=== PATIENT | male | born 1935 | race Caucasian/White ===

== ENCOUNTER 2016-10-14 13:04 | Emergency (ER) | payer MEDICARE, OTHER ==
[~2016-10-14] VITALS: Ht 180.3 cm; Wt 83.0 kg
[~2016-10-14 13:04] MED LIST: FOSI20TA PO; OMEP20CA9 PO; SIMV40TA3 PO
[2016-10-14 13:22] VITALS: BP 113/73
[2016-10-14] MEDS ORDERED: FENTANYL PF 100 MCG/2 ML VIAL. IV ONE (14:00)
[2016-10-14 14:30] LABS: BASO # 0.1 x10^3/uL (0.0-0.2); BASO % 1 % (0-3); EOS % 5 % (0-3); HEMATOCRIT 47.2 % (39.0-53.0); HEMOGLOBIN 16.2 g/dL (13.0-17.5); LYMPH # 1.5 x10^3/uL (1.0-4.8); LYMPH % 20 % (24-48); MEAN CORPUSCULAR HEMOGLOBIN 32 pg (25-35); MEAN CORPUSCULAR HGB CONC 34 g/dL (31-37); MEAN CORPUSCULAR VOLUME 95 fL (79-100); MONO % 6 % (0-9); NEUT % 67 % (31-73); PLATELET COUNT 139 x10^3/uL (140-400); RED BLOOD COUNT 4.99 x10^6/uL (4.30-5.70); RED CELL DISTRIBUTION WIDTH 13.6 % (11.5-14.5); WHITE BLOOD COUNT 7.6 x10^3/uL (4.0-11.0)
[2016-10-14 14:38] LABS: CALCIUM 8.9 mg/dL (8.5-10.1); GFR 72.1; POTASSIUM 3.7 mmol/L (3.5-5.1)
[2016-10-14 15:04] LABS: BILIRUBIN,URINE NEGATIVE (NEG); GLUCOSE,URINE NEGATIVE (NEG); NITRITE,URINE NEGATIVE (NEG); PH,URINE 5.5; PROTEIN,URINE NEGATIVE (NEG-TRACE); UROBILINOGEN,URINE 0.2 mg/dL (0.2 mg/dL)
[2016-10-14 15:09] LABS: BACTERIA,URINE 0 /HPF (0-FEW); RBC,URINE 0 /HPF (0-2); SQUAMOUS EPITHELIAL CELL,UR OCC /LPF; WBC,URINE 0 /HPF (0-4)
--- NOTE | 2016-10-14 15:15 | PHYS DOC ---
Past Medical History Past Medical History: Diverticulitis, GERD, High Cholesterol, Hypertension, Other Additional Past Medical Histor: colitis Past Surgical History: Cholecystectomy Alcohol Use: Occasionally Drug Use: None Adult General Chief Complaint Chief Complaint: FLANK PAIN HPI HPI 81-year-old male presenting with left-sided flank pain that does radiate somewhat into his abdomen for the last 5 days. He denies any dysuria or hematuria. He does state he has recent history of diverticulitis although he states it felt somewhat different than his current symptoms. He denies any nausea or vomiting. He states he's had loose stools but denies any blood. He denies any fever or chills. Pt is fully alert and oriented at this time and is speaking in complete sentences and does not appear to be in any acute distress. He rates his pain a 6 out of 10 on the pain scale. He does state that movement makes his pain worse Review of Systems Review of Systems Constitutional: Denies fever or chills [] Eyes: Denies change in visual acuity, redness, or eye pain [] HENT: Denies nasal congestion or sore throat [] Respiratory: Denies cough or shortness of breath [] Cardiovascular: No additional information not addressed in HPI [] GI: Has abdominal pain, denies nausea, denies vomiting, denies bloody stools or diarrhea [] : Denies dysuria or hematuria [] Musculoskeletal: Denies back pain or joint pain [] Integument: Denies rash or skin lesions [] Neurologic: Denies headache, focal weakness or sensory changes [] Endocrine: Denies polyuria or polydipsia [] Current Medications Current Medications Current Medications Medications (Trade) Dose Ordered Sig/Abdullahi Start Time Stop Time Status Last Admin Dose Admin Fentanyl Citrate (Fentanyl 2ml Vial) 50 mcg 1X ONCE 10/14/16 14:00 10/14/16 14:01 DC 10/14/16 14:39 50 MCG Allergies Allergies Allergies Coded Allergies Type Severity Reaction Last Updated Verified tetracycline Allergy Intermediate Unknown 11/04/13 Yes Physical Exam Physical Exam Constitutional: Well developed, well nourished, no acute distress, non-toxic appearance. [] HENT: Normocephalic, atraumatic, bilateral external ears normal, oropharynx moist, no oral exudates, nose normal. [] Eyes: PERRLA, EOMI, conjunctiva normal, no discharge. [] Neck: Normal range of motion, no tenderness, supple, no stridor. [] Cardiovascular:Heart rate regular rhythm, no murmur [] Lungs & Thorax: Bilateral breath sounds clear to auscultation [] Abdomen: Bowel sounds normal, soft, mild LLQ tenderness, no masses, no pulsatile masses. [] Skin: Warm, dry, no erythema, no rash. [] Back: No tenderness, left CVA tenderness. [] Extremities: No tenderness, no cyanosis, no clubbing, ROM intact, no edema. [] Neurologic: Alert and oriented X 3, normal motor function, normal sensory function, no focal deficits noted. [] Psychologic: Affect normal, judgement normal, mood normal. [] Current Patient Data Vital Signs Vital Signs Date Time Temp Pulse Resp B/P Pulse Ox O2 Delivery O2 Flow Rate FiO2 10/14/16 14:39 18 97 Room Air 10/14/16 13:22 97.8 88 113/73 97.8 Lab Values Laboratory Tests Test 10/14/16 14:20 10/14/16 14:55 White Blood Count 7.6x10^3/uL (4.0-11.0) Red Blood Count 4.99x10^6/uL (4.30-5.70) Hemoglobin 16.2g/dL (13.0-17.5) Hematocrit 47.2% (39.0-53.0) Mean Corpuscular Volume 95fL (79-100) Mean Corpuscular Hemoglobin 32pg (25-35) Mean Corpuscular Hemoglobin Concent 34g/dL (31-37) Red Cell Distribution Width 13.6% (11.5-14.5) Platelet Count 139x10^3/uL (140-400) L Neutrophils (%) (Auto) 67% (31-73) Lymphocytes (%) (Auto) 20% (24-48) L Monocytes (%) (Auto) 6% (0-9) Eosinophils (%) (Auto) 5% (0-3) H Basophils (%) (Auto) 1% (0-3) Neutrophils # (Auto) 5.1x10^3uL (1.8-7.7) Lymphocytes # (Auto) 1.5x10^3/uL (1.0-4.8) Monocytes # (Auto) 0.5x10^3/uL (0.0-1.1) Eosinophils # (Auto) 0.4x10^3/uL (0.0-0.7) Basophils # (Auto) 0.1x10^3/uL (0.0-0.2) Sodium Level 141mmol/L (136-145) Potassium Level 3.7mmol/L (3.5-5.1) Chloride Level 104mmol/L (98-107) Carbon Dioxide Level 29mmol/L (21-32) Anion Gap 8 (6-14) Blood Urea Nitrogen 15mg/dL (8-26) Creatinine 1.0mg/dL (0.7-1.3) Estimated GFR (Cockcroft-Gault) 72.1 Glucose Level 97mg/dL (70-99) Calcium Level 8.9mg/dL (8.5-10.1) Lipase 260U/L (73-393) Urine Collection Type Unknown Urine Color Yellow Urine Clarity Clear Urine pH 5.5 Urine Specific [place] 1.010 Urine Protein Negativemg/dL (NEG-TRACE) Urine Glucose (UA) Negativemg/dL (NEG) Urine Ketones (Stick) Negativemg/dL (NEG) Urine Blood Negative (NEG) Urine Nitrite Negative (NEG) Urine Bilirubin Negative (NEG) Urine Urobilinogen Dipstick 0.2mg/dL (0.2 mg/dL) Urine Leukocyte Esterase Negative (NEG) Urine RBC 0/HPF (0-2) Urine WBC 0/HPF (0-4) Urine Squamous Epithelial Cells Occ/LPF Urine Bacteria 0/HPF (0-FEW) Urine Mucus Slight/LPF Laboratory Tests 10/14/16 14:20 Laboratory Tests 10/14/16 14:20 EKG EKG [] Radiology/Procedures Radiology/Procedures CT scan of the abdomen and pelvis without contrast 10/14/2016 Clinical history: Left flank pain for 5 days. Technique: Unenhanced, contiguous, 2 mm axial sections were obtained to the abdomen and pelvis. One or more of the following individualized dose reduction techniques were utilized for this study: 1. Automated exposure control. 2. Adjustment of the mA and/or kV according to patient size. 3. Use of iterative reconstruction technique. Findings: Comparison study is dated 04/27/2014. Images through the lung bases demonstrate minimal dependent subsegmental atelectasis bilaterally. The liver, spleen, pancreas and adrenal glands are within normal limits. Multiple rounded low attenuation structures are seen scattered throughout both kidneys. These measure 1 cm to 12 cm in size. They likely represent cysts. A 3 mm nonobstructing calculus is seen involving the periportal left kidney. A 1 mm calculus is seen involving the lower pole of the left kidney. A 1 mm calculus is seen involving the midpole the right kidney. These are nonobstructing. No ureteral calculus is seen. There is no evidence of obstruction of either collecting system. Mild to moderate atherosclerotic calcification of the abdominal aorta is seen. The abdominal aorta tapers normally. Surgical clips are seen within the gallbladder fossa consistent with cholecystectomy. No free fluid or free air is seen within the abdomen. There is no evidence of bowel obstruction. Images through the pelvis demonstrate the urinary bladder distended with urine. Multiple diverticula are seen involving the sigmoid colon. No inflammatory changes are seen in the adjacent fat. Calcifications are seen within the pelvis consistent with phleboliths. No free fluid is seen. Degenerative changes are seen involving the lower thoracic and throughout the lumbar spine. Impression: No acute abnormality is seen. Course & Med Decision Making Course & Med Decision Making Pertinent Labs and Imaging studies reviewed. (See chart for details) This 81-year-old male with significant left-sided flank pain that radiates to his abdomen for the past 5 days has laboratory workup that is unremarkable. CT of his abdomen and pelvis is pending at this time. His urinalysis is unremarkable. His laboratory is unremarkable. His pain appears well controlled. I'll be prescribing him a course of Cipro and Flagyl as well as pain meds for what is likely a clinical diverticulitis. His CT demonstrated some diverticula in the sigmoid colon but did not have any evidence of inflammation and had no other acute finding. He will follow closely with his primary care doctor in the next several days for symptom resolution. Dragon Disclaimer Dragon Disclaimer This electronic medical record was generated, in whole or in part, using a voice recognition dictation system. Departure Departure Impression: Primary Impression: Abdominal pain, LLQ (left lower quadrant) Disposition: 01 HOME, SELF-CARE Admitting Physician: Other Condition: STABLE Referrals: SUE MURPHY MD (PCP) Patient Instructions: Abdominal Pain, Diverticulitis, [id number] Additional Instructions: Please take your antibiotics as prescribed and your pain medication. Follow up closely with your primary doctor in the next 2-3 days for your symptoms. Return to the ER if you develop any worsening of your symptoms. Scripts Ondansetron Hcl (Zofran)4 Mg Tablet4 Mg PO BID PRN NAUSEA/VOMITING #10 TAB Prov:MILI ALMONTE DO 10/14/16 Hydrocodone/Apap 5-325 ([place] 5-325 Tablet)1 Each Tablet1 Tab PO PRN Q6HRS PRN PAIN #14 TAB Ref 0 Prov:MILI ALMONTE DO 10/14/16 Metronidazole (Flagyl)500 Mg Tablet1 Tab PO BID #20 TAB Prov:MILI ALMONTE DO 10/14/16 Ciprofloxacin Hcl (Cipro)500 Mg Tablet1 Tab PO BID #20 TAB Prov:MILI ALMONTE DO 10/14/16 MILI ALMONTE DO Oct 14, 2016 15:15
[2016-10-14] MEDS ORDERED: HYDR-971 PO (15:26)
[2016-10-14] MEDS ORDERED: METR500T PO (15:26)
[2016-10-14] MEDS ORDERED: CIPR500T94 PO (15:26)
[2016-10-14] MEDS ORDERED: ONDA4TAB7 PO (15:29)
== END 2016-10-14 15:45 | disposition home or self-care (01) ==
LOC: ER 13:04
DX: R10.32 Left lower quadrant pain (principal); K21.9 Gastro-esophageal reflux disease without esophagitis; I10 Essential (primary) hypertension; E78.00 Pure hypercholesterolemia, unspecified; Z90.49 Acquired absence of other specified parts of digestive tract
CPT/HCPCS: 36415; 74176; 80048; 81001; 83690; 85027; 96374; 99285; J3010

== ENCOUNTER → 2016-11-06 | Outpatient (CLI) | payer MEDICARE, OTHER ==
[2016-10-14 13:22] VITALS: BP 113/73
[~2016-11-06] MED LIST changes: +CIPR500T94 PO; +HYDR-971 PO; +IOHEXOL 240 MG/ML 50ML VIAL. PO ONE; +IOHEXOL 300 MG/ML 100ML VIAL. IV ONE; +METR500T PO; +ONDA4TAB7 PO
--- NOTE | 2016-11-06 14:56 | KCIC ---
PQRS STATEMENT One or more of the following individualized dose reduction techniques were utilized for this study: 1.Automated exposure control. 2.Adjustment of the mA and/orkVaccording to patient size. 3.Use of iterative reconstruction technique. Indication:Reason For Study Reason: PERSISTENT LLQ PAIN / Spl. Instructions: 100cc Omni 300 / History: Hx diverticulitis, finished antiobiotics, cholecystectomy Comparison: CT abdomen pelvis from 10/14/2016 Technique: multiple contiguous axial images were obtained through the abdomen and pelvis after intravenous administration of iodinated contrast. Coronal and sagittal reformations were created. Findings: Lung bases are clear. Heart size is normal. The liver is normal in size. There is a ill-defined enhancing lesion in the right lobe of the liver which was seen on an old exam from 04/27/2014 which probably represents a hemangioma. The gallbladder is surgically absent. The pancreas, adrenal glands, and spleen are unremarkable. The abdominal aorta is normal in caliber. No ascites or adenopathy. Again noted are prominent renal cysts bilaterally. No enhancing renal lesion is identified. The largest cyst on the right measures 12.4 centimeters. The largest cyst on the left measures 6.9 centimeters. The appendix is not identified but there is no pericecal inflammatory mass to suggest acute appendicitis. There are diverticula involving the sigmoid colon with no inflammatory findings to suggest acute diverticulitis. Urinary bladder is within normal limits. No destructive osseous lesion. Impression: - No ascites or inflammatory mass. - Probable hemangioma of the right lobe of the liver. - Bilateral prominent renal cysts. - Diverticulosis of the sigmoid colon without evidence for acute diverticulitis. Electronically signed by: Jatin Kirby (November 06, 2016 14:55:14)
== END | disposition home or self-care (01) ==
LOC: KCIC CT 13:12
PROVIDERS: ATTEND Internal Medicine Gastroenterology
DX: R10.32 Left lower quadrant pain (principal); N28.1 Cyst of kidney, acquired
CPT/HCPCS: 74177; 82565; Q9966; Q9967

== ENCOUNTER → 2016-11-22 | Outpatient (CLI) | payer MEDICARE, OTHER ==
[~2016-11-22] MED LIST changes: +BARIUM SULFATE 105% 1,900 ML SUSP PO ONE; -IOHEXOL 240 MG/ML 50ML VIAL. PO ONE; -IOHEXOL 300 MG/ML 100ML VIAL. IV ONE
--- NOTE | 2016-11-22 10:55 | RAD ---
Barium enema History: Incomplete colonoscopy. Comparison: CT abdomen pelvis 11/06/2016. Technique: 1 [employer] radiograph was obtained. 8 postprocedure radiographs were obtained. 23 spot fluoroscopic images were obtained. Total fluoroscopic time is 3.5 minutes. Findings: E [employer]ist film demonstrates a nonobstructed bowel gas pattern.] Is thought adequate. Cholecystectomy clips are seen. Secondary to provided history of incomplete colonoscopy, single contrast barium enema was performed. Rectal catheter was inserted and rectal balloon was inflated. Contrast was instilled by gravity into the colon filling all parts of the colon as evidenced by opacification of the appendix and terminal ileum. Extensive colonic diverticulosis is noted in the sigmoid colon. The sigmoid colon also demonstrates evidence of distortion which may represent chronic changes of previous diverticulitis as well as muscular hypertrophy. No fixed filling defects or fixed structures are identified in the sigmoid colon. Colonic diverticulosis is also seen in the other portions of the colon, although to a lesser degree. The descending colon as well as the flexures and transverse colon appropriate appearance. The right colon fills with contrast material and no strictures or masses are identified. Impression: 1. Colonic diverticulosis, most evident in the sigmoid colon. There is evidence of distortion of the sigmoid colon which may represent chronic scarring from previous episodes of diverticulitis or muscular hypertrophy. 2. No colonic masses or colonic polyps are identified, although single contrast technique is relatively insensitive for polyps less than 1 cm.
== END | disposition home or self-care (01) ==
LOC: RAD 08:55
PROVIDERS: ATTEND Internal Medicine Gastroenterology
DX: Z91.19 Patient's noncompliance with other medical treatment and regimen (principal); R10.32 Left lower quadrant pain; K57.30 Diverticulosis of large intestine without perforation or abscess without bleeding
CPT/HCPCS: 74270